=== PATIENT | male | born 1945 | race Caucasian/White ===

== ENCOUNTER 2018-01-28 07:02 | Day surgery (SDC) | payer MEDICARE, BC ==
[2018-01-28] MEDS ORDERED: Propofol 200 MG/20 ML SDV ONE ×2 (07:31→08:23)
[2018-01-28] MEDS ORDERED: fentaNYL 100 MCG/2 ML SDV ONE (07:31)
[2018-01-28] MEDS ORDERED: Midazolam 1 MG/ML 2 ML SDV ONE (07:32)
[2018-01-28] MEDS ORDERED: Lactated Ringers 1,000 ML IV SCH (08:15)
--- NOTE | 2018-01-28 09:19 | OR ---
DATE OF PROCEDURE: 01/28/2018 PREOPERATIVE DIAGNOSIS: History of tubular adenoma. POSTOPERATIVE DIAGNOSES: Diverticulosis, small proximal transverse colon polyp, history of tubular adenoma. PROCEDURE: Colonoscopy to the cecum with biopsy resection of small proximal transverse colon polyp. ANESTHESIA: IV anesthesia with monitored anesthesia care. INDICATION: This 72-year-old white male is referred for a colonoscopy. He has a history of a tubular adenoma, removed in 2012. I counseled him for the procedure including risks and alternatives, and he gave his informed consent to proceed. DESCRIPTION OF PROCEDURE: The patient was placed in the left lateral decubitus position. IV anesthesia was administered by the Anesthesia Service. Time-out was held. A rectal exam was performed, which was unremarkable. The flexible video Olympus colonoscope was introduced through his anus, up his rectum, and out his colon, all the way to the cecum. En route, we saw multiple left-sided diverticula. There was no bleeding or inflammation associated with them. Once the cecum was reached, the scope was slowly withdrawn, examining the mucosa throughout. In the proximal transverse colon, we saw a small polyp, which was removed with a single bite of the biopsy forceps. The scope was then withdrawn further with no other additional, other than the previously noted diverticula seen. The scope was retroflexed in the rectum with the distal rectum appearing unremarkable. The scope was straightened and removed. He tolerated the procedure well. Flip Hankins MD /[id number]
[2018-01-28] MEDS ORDERED: Ondansetron 4 MG/2 ML SDV ONE (10:11)
[2018-01-28] MEDS ORDERED: Ondansetron 4 MG/2 ML SDV IVPUSH STA (10:29)
[2018-01-28 10:33] VITALS: BP 121/60
== END 2018-01-28 10:45 | disposition home or self-care (01) ==
LOC: JP.SDS 07:02
PROVIDERS: ATTEND Surgery
DX: Z12.11 Encounter for screening for malignant neoplasm of colon (principal); D12.3 Benign neoplasm of transverse colon; K57.30 Diverticulosis of large intestine without perforation or abscess without bleeding; I10 Essential (primary) hypertension; Z86.010 Personal history of colon polyps; Z87.891 Personal history of nicotine dependence; Z88.2 Allergy status to sulfonamides
CPT/HCPCS: 45380; J2250; J2405; J2704; J3010; J7120

== ENCOUNTER 2021-01-30 06:59 | Day surgery (SDC) | payer MEDICARE, BC ==
[2021-01-30] MEDS ORDERED: Propofol 200 MG/20 ML SDV ONE (07:30)
[2021-01-30] MEDS ORDERED: Midazolam 1 MG/ML 2 ML SDV ONE (07:30)
[2021-01-30] MEDS ORDERED: fentaNYL 100 MCG/2 ML SDV ONE (07:30)
[2021-01-30] MEDS ORDERED: Sodium Chloride 0.9% 1,000 ML IV SCH (07:30)
[2021-01-30 09:21] VITALS: PULSE 58
[2021-01-30 10:44] VITALS: BP 133/79
--- NOTE | 2021-01-30 15:03 | OR ---
DATE OF PROCEDURE: SURGEON: Jamal Casey MD PROCEDURE: Colonoscopy. FINDINGS: 1. Diverticulosis, moderate, mostly limited to sigmoid colon without evidence of diverticulitis or bleeding. 2. Ascending colon polyp, approximately 5 mm, completely removed using hot snare wire device. COMPLICATIONS: None. [employer]: None. ANESTHESIA: MAC. PREOPERATIVE DIAGNOSIS: Screening colonoscopy. POSTOPERATIVE DIAGNOSIS: Screening colonoscopy. RISKS: Risks, benefits, alternatives, limitations including, but not limited to infection, bleeding, perforation, false positives and false negatives were explained to the patient and they wished to proceed. PROCEDURE IN DETAIL: The patient was placed in left lateral decubitus position. Digital rectal exam was performed without abnormality. Scope was introduced and advanced atraumatically to the ileocecal valve. The scope was brought back to the ascending, transverse, descending colon, and retroflexed. The aforementioned polyp was identified and completely removed. No evidence of old or new blood. The diverticulosis would be described as mild to moderate, limited to sigmoid colon mostly without evidence of diverticulitis or bleeding. No evidence of colitis. No abnormalities on retroflexion. Prep was acceptable with 90% of luminal surface could be seen. Greater than 8 minutes was spent removing the scope. The patient tolerated procedure well. Jamal Casey MD /[id number]
== END 2021-01-30 10:45 | disposition home or self-care (01) ==
LOC: JP.SDS 06:59
PROVIDERS: ATTEND Surgery
DX: Z12.11 Encounter for screening for malignant neoplasm of colon (principal); D12.2 Benign neoplasm of ascending colon; K57.30 Diverticulosis of large intestine without perforation or abscess without bleeding; I10 Essential (primary) hypertension; E78.00 Pure hypercholesterolemia, unspecified; Z88.2 Allergy status to sulfonamides; Z86.010 Personal history of colon polyps
CPT/HCPCS: 45385; 88305; J2250; J2704; J3010; J7030